=== PATIENT | male | born 1980 | race Caucasian/White ===

== ENCOUNTER 2017-11-07 13:23 | Emergency (ER) | payer SELFPAY ==
[2017-11-07 13:28] VITALS: TEMP 98; BMI 35.7
[2017-11-07] MEDS ORDERED: ACETAMINOPHEN 500 MG TABLET (FP) PO ONE (15:13)
[2017-11-07] MEDS ORDERED: HYDROCHLOROTHIAZIDE 12.5 MG CAPSULE (FP) PO ONE (15:19)
--- NOTE | 2017-11-07 15:25 | PDOC ---
History of Present Illness - General Chief Complaint: Blood Pressure Problem Stated Complaint: HYPERTENSIVE Time Seen by Provider: 11/07/17 14:47 - History of Present Illness Initial Comments: 11/07/17 15:20 The patient is a 37 year old male with a history of chronic back pain and HTN who presents for evaluation of high blood pressure. The patient reports that he was being seen at his pain management clinic and was found to have a blood pressure of 180/111 prompting his presentation to the ED for evaluation. He states that he ran out of his blood pressure medication 1 week ago and has not taken it. He does not know what blood pressure medication he was taking and does not follow with a primary care provider. He denies fevers, chills, vision changes, chest pain, SOB, nausea, vomiting, abdominal pain, or changes with urination or bowel movements. Past History - Past Medical History Allergies/Adverse Reactions: Allergies Allergy/AdvReac Type Severity Reaction Status Date / Time No Known Allergies Allergy Verified 11/07/17 13:25 Home Medications: Ambulatory Orders Hydrochlorothiazide [Hctz -] 12.5 mg PO DAILY #30 cap 11/07/17 COPD: No HTN: Yes Other medical history: back problems - Surgical History Abdominal Surgery: Yes (colon) - Suicide/Smoking/Psychosocial Hx Smoking History: Never smoked Have you smoked in the past 12 months: No Information on smoking cessation initiated: No Hx Alcohol Use: No Drug/Substance Use Hx: No Substance Use Type: None Review of Systems - Review of Systems Comments:: 11/07/17 15:23 Constitutional: No fevers, chills, fatigue, malaise HEENT: No Rhinorrhea, nasal congestion, visual changes Cardiovascular: No chest pain, syncope, palpitations, lightheadedness Respiratory: No Cough, SOB, Hemoptysis, Gastrointestinal: No Abdominal pain, Nausea, Vomiting, Constipation, Diarrhea, Melena Genitourinary: No Dysuria, Frequency, Urgency, Hesitancy, Hematuria, Flank pain Musculoskeletal: No Myalgia, arthralgia Skin: No rashes, bruising, pallor Neurologic: No Headache, Dizziness, Numbness, Weakness, or Tingling Psychiatric: No Hallucinations. No SI or HI *Physical Exam - Vital Signs Last Vital Signs Temp Pulse Resp BP Pulse Ox 98.0 F 91 H 18 153/100 100 11/07/17 13:25 11/07/17 13:25 11/07/17 13:25 11/07/17 13:25 11/07/17 13:25 - Physical Exam Comments: 11/07/17 15:26 General Appearance: Nourished. No Apparent Distress HEENT: EOMI, RASHEED. No Pharyngeal Erythema, Tonsillar Exudate, Tonsillar Erythema Neck: No Cervical Lymphadenopathy Respiratory/Chest: Lungs Clear, Normal Breath Sounds. No Crackles, Rales, Rhonchi, Wheezing Cardiovascular: Regular Rhythm, Regular Rate. No Murmur, Gallops, Rubs Gastrointestinal/Abdominal: Normal Bowel Sounds, Soft. No Guarding, Rebound, Tenderness Musculoskeletal: No CVA Tenderness Extremity: Normal Capillary Refill Integumentary: Normal Color, Dry, Warm Neurologic: field services director II-XII NML intact, Fully Oriented, Alert, Normal Mood/Affect, Normal Response, Motor Strength 5/5. Medical Decision Making - Medical Decision Making 11/07/17 15:28 The patient is a 37 year old male with a history of chronic back pain and HTN who presents for evaluation of high blood pressure. The patient is resting comfortable on presentation to the ED at this time. He is currently asymptomatic with a normal physical exam. We will treat him with tylenol and 12.5 of hydrochlorothiazide and reassess his bp in the ED. We will continue to monitor and reassess. 11/07/17 16:22 Patient's blood pressure has improved to 142/98. We are comfortable discharging the patient home at this time with primary care provider follow up and a prescription of hydrochlorothiazide. We discussed the importance of following up with a primary care provider with the patient who voiced understanding. The patient is agreeable with the plan. *DC/Admit/Observation/Transfer Diagnosis at time of Disposition: High blood pressure Qualifiers: Hypertension type: unspecified Qualified Code(s): I10 - Essential (primary) hypertension - Discharge Dispostion Disposition: HOME Condition at time of disposition: Improved Admit: No - Prescriptions Prescriptions: Hydrochlorothiazide [Hctz -] 12.5 mg PO DAILY #30 cap - Referrals Referrals: Santi Dale MD [Staff Physician] - - Patient Instructions Printed Discharge Instructions: DI for High Blood Pressure, How to Monitor Your Blood Pressure at Home Additional Instructions: Please return to the ER if you experience concerning or worsening symptoms including headache, chest pain, or difficulty breathing. You were seen in the ER for High blood pressure. You were given medication to get your blood pressure under control and we have sent a prescription that you should continue to take daily. It is extremely important that you call to schedule a follow up appointment with the number we have provided you to establish care with a primary care provider within 1 week. Por favor, regrese a la scooter de emergencias si experimenta problemas o empeoramiento de los sntomas, incluyendo dolor de danay, dolor en el pecho o dificultad respiratoria. Te vieron en urgencias por la presin sangunea bruce. Se le sin medicacin para controlar gonzalez presin arterial y hemos enviado mercy prescripcin que debe seguir tomando diariamente. Es extremadamente importante que usted llame para programar [facility]ton de seguimiento con el nmero que le hemos proporcionado para establecer la atenci n con un proveedor de atencin primaria en un plazo de 1 semana. Print Language: LITHUANIAN - Post Discharge Activity
[2017-11-07] MEDS ORDERED: ACETAMINOPHEN 325 MG TABLET (FP) ONE (15:57)
[2017-11-07] MEDS ORDERED: HYDROCHLOROTHIAZIDE 25 MG TABLET (FP) ONE (15:57)
--- NOTE | 2017-11-07 16:11 | PDOC ---
Attending Attestation - Resident Resident Name: AnnyKenneth - ED Attending Attestation I have performed the following: I have examined & evaluated the patient, The case was reviewed & discussed with the resident, I agree w/resident's findings & plan, Exceptions are as noted - HPI HPI: 11/07/17 16:04 37-year-old with past medical history of hypertension, chronic pain status post spinal surgery several months ago sent in from pain management physician's office for a symptomatically elevated blood pressure. Patient reports that he is no primary care physician and ran out of his hypertension medications approximately one week ago. However, he does not know the name of his medications nor does he have a doctor. We called his pharmacy and his pharmacy states he has not been there in a while. Patient was at a routine visit when he noticed blood pressure 180/120 with the patient had no new symptoms or any symptoms. Came to the ED for evaluation. Denies headache, chest pain, short of breath, palpitations, numbness or weakness. - Physicial Exam PE: 11/07/17 16:06 GENERAL: Awake, alert, and fully oriented, in no acute distress. HEAD: No signs of trauma EYES: PERRLA, EOMI, sclera anicteric, conjunctiva clear ENT: Auricles normal inspection, hearing grossly normal, nares patent, NECK: Normal ROM, supple LUNGS: Breath sounds equal, clear to auscultation bilaterally. No wheezes, and no crackles HEART: Regular rate and rhythm, normal S1 and S2, no murmurs, rubs or gallops ABDOMEN: Soft, nontender, normoactive bowel sounds. No guarding, no rebound. No masses EXTREMITIES: Normal range of motion, no edema. No clubbing or cyanosis. No cords, erythema, or tenderness NEUROLOGICAL: Cranial nerves II through XII grossly intact. Normal speech, normal gait SKIN: Warm, Dry, normal turgor, no rashes or lesions noted. - Medical Decision Making 11/07/17 16:08 Vital Signs Temp Pulse Resp BP Pulse Ox 98.0 F 91 H 18 153/100 100 11/07/17 13:25 11/07/17 13:25 11/07/17 13:25 11/07/17 13:25 11/07/17 13:25 Patient has asystematic hypertension. No symptoms. Not hypertensive emergency. The blood pressure is improved from 153/100 without intervention We'll give him 12.5 mg of hydrochlorothiazide and repeat the blood pressure. And if improved, will give him follow up at [facility].
[2017-11-07 16:22] VITALS: BP 142/98; PULSE 78
== END 2017-11-07 17:00 | disposition home or self-care (01) ==
LOC: JER 13:23
DX: I10 Essential (primary) hypertension (principal); G89.29 Other chronic pain; Z91.14 Patient's other noncompliance with medication regimen
CPT/HCPCS: 99282-25